=== PATIENT | female | born 1985 | race Caucasian/White ===

== ENCOUNTER → 2017-03-02 | Outpatient (CLI) | payer OTHER | LOC: HEART CORB 08:23 | DX: R07.2 Precordial pain (principal); R06.02 Shortness of breath | CPT/HCPCS: 78452; A9502; J2785 ==

== ENCOUNTER → 2022-04-22 | Outpatient (CLI) | payer OTHER | LOC: EMI 12:34 | DX: G44.89 Other headache syndrome (principal) | CPT/HCPCS: 70551 ==